=== PATIENT | male | born 1980 | race Caucasian/White ===

== ENCOUNTER 2017-12-22 12:12 | Emergency (ER) | payer SELFPAY ==
[2017-12-22] MEDS ORDERED: KETOROLAC 30 MG/ML INJ ONE (14:20)
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
== END 2017-12-22 15:08 | disposition home or self-care (01) ==
LOC: ER 12:12
DX: S83.8X2A Sprain of other specified parts of left knee, initial encounter (principal); S39.012A Strain of muscle, fascia and tendon of lower back, initial encounter; S29.012A Strain of muscle and tendon of back wall of thorax, initial encounter; V49.49XA Driver injured in collision with other motor vehicles in traffic accident, initial encounter
CPT/HCPCS: 96372; 99283

== ENCOUNTER 2018-05-23 12:27 | Emergency (ER) | payer SELFPAY ==
[2018-05-23] MEDS ORDERED: KETOROLAC 30 MG/ML INJ ONE (13:10)
[2018-05-23] MEDS ORDERED: ONDANSETRON 4 MG/2 ML VIAL ONE (13:10)
[2018-05-23] MEDS ORDERED: NA CHLORIDE 0.9% 1,000 ML ONE (13:11)
[2018-05-23 13:20] LABS: Absolute Lymphocytes (CBC) 2.5 K/uL (0.7-4.9); Absolute Monocytes 0.8 K/uL (0.1-1.3); Absolute Neutrophil 10.9 K/uL (1.8-8.0); Basophils % 0.5 % (0-1.3); Eosinophils % 0.7 % (0-4.4); Hematocrit 43.4 % (39.6-49.0); Lymphocytes % 17.6 % (15.3-44.8); MCH 28.4 pg (27.0-35.0); MPV 7.7 fL (7.6-11.3); Monocytes % 5.8 % (3.3-12.3); RBC Red Blood Cell Count 5.23 M/uL (4.33-5.43)
[2018-05-23 13:30] LABS: Urine Bacteria >50 /HPF (NONE SEEN); Urine Culture Reflex Order REFLEXED; Urine Mucus 2+ /HPF (NONE SEEN)
--- NOTE | 2018-05-23 13:33 | RAD REPORT ---
EXAM DESCRIPTION: CT - Stone Protocol - 05/23/2018 1:12 pm CLINICAL HISTORY: Flank pain. left flank pain COMPARISON: No comparisons TECHNIQUE: Axial images were obtained without oral or IV contrast. Lack of contrast limits solid org an and vascular assessment. The [id number] spans the entirety of the system partially obscuring uppermost abdomen and lung bases. Coronal reformatted images were obtained and reviewed. All CT scans are performed using dose optimization technique as appropriate and may include automated exposure control or mA/KV adjustment according to patient size. FINDINGS: The lower lung sadler are clear. Imaged portions of the liver and spleen show fatty liver.Spleen is normal. The pancreas and adrenal g lands are normal. No pathologic lymphadenopathy in the abdomen or pelvis. 5 mm stone (925 HU) is present at the left UVJ resulting in mild left hydronephrosis. Additional bila teral caliceal stones are present in both kidneys. No bowel obstruction, free air, free fluid or abscess. Normal appendix noted. No significant bony abnormality. IMPRESSION: 5 mm stone at the left UVJ results in mild left hydronephrosis.
[2018-05-23 13:37] LABS: Albumin 3.7 g/dL (3.4-5.0); Bilirubin Direct 0.1 mg/dL (0-0.2); Bilirubin Total 0.4 mg/dL (0.2-1.0); Potassium 3.6 mmol/L (3.5-5.1); Protein, Total 7.9 g/dL (6.4-8.2)
[2018-05-23] MEDS ORDERED: MAGNESIUM SULFATE 1 gm IVPB 1 GM/100 ML BAG IV ONE (13:43)
--- NOTE | 2018-05-23 14:21 | ER ---
Nurse's Notes [facility] Name: Clifton Macias Age: 38 yrs Sex: Male : 1980 Arrival Date: 05/23/2018 Time: 12:30 Bed 18 Private MD: None, None Diagnosis: Calculus of ureter-Left Presentation: 05/23 12:30 Presenting complaint: Patient states: Sunday i thought its a muscle pain, took tylenol hj and then abd pain getting worse (L flank area, radiating to the groin area); reports N/V; reports constipation; reports chills;. Transition of care: patient was not received from another setting of care. Onset of symptoms was May 23, 2018. Risk Assessment: Do you want to hurt yourself or someone else? Patient reports no desire to harm self or others. Initial Sepsis Screen: Does the patient meet any 2 criteria? No. Patient's initial sepsis screen is negative. Does the patient have a suspected source of infection? No. Patient's initial sepsis screen is negative. Care prior to arrival: None. 12:30 Method Of Arrival: Ambulatory 12:30 Acuity: TOSHIA 3 hj Triage Assessment: 12:33 General: Appears in no apparent distress. uncomfortable, Behavior is calm, cooperative, hj appropriate for age. Pain: Complains of pain in abdomen, L flank Pain currently is 7 out of 10 on a pain scale. Historical: - Allergies: 12:32 No Known Allergies; hj - Home Meds: 12:32 None [Active]; hj - PMHx: 12:32 None; hj - PSHx: 12:32 None; hj - Immunization history:: Adult Immunizations up to date. - Social history:: Smoking status: Patient/guardian denies using tobacco, Patient/guardian denies using alcohol. - Ebola Screening: : Patient negative for fever greater than or equal to 101.5 degrees Fahrenheit, and additional compatible Ebola Virus Disease symptoms Patient denies exposure to infectious person Patient denies travel to an Ebola-affected area in the 21 days before illness onset. Screenin:33 Abuse screen: Denies threats or abuse. Denies injuries from another. Nutritional hj screening: No deficits noted. Tuberculosis screening: No symptoms or risk factors identified. Fall Risk None identified. Assessment: 12:55 General: Appears uncomfortable, obese, Behavior is calm, cooperative. Pain: Complains aa5 of pain in left flank Pain radiates to left lower quadrant Pain currently is 10 out of 10 on a pain scale. Quality of pain is described as sharp, Pain began this morning. Pt states "I had this pain Sunday and it went away but came back today" Is continuous. Neuro: Level of Consciousness is awake, alert, obeys commands, Oriented to person, place, time, situation. Cardiovascular: Heart tones S1 S2 present Rhythm is regular. Respiratory: Airway is patent Respiratory effort is even, unlabored, Respiratory pattern is regular, symmetrical. GI: Abdomen is obese, Bowel sounds present X 4 quads. Abd is soft and non tender X 4 quads. Reports nausea, vomiting, Reports last BM was Sunday. Pt reports constipation. : Reports burning with urination, decreased urinary output since Sunday. EENT: No signs and/or symptoms were reported regarding the EENT system. Derm: Skin is pink, warm \\T\\ dry. Musculoskeletal: Range of motion: intact in all extremities. 13:35 Reassessment: Patient and/or family updated on plan of care and expected duration. Pain aa5 level reassessed. Patient is alert, oriented x 3, equal unlabored respirations, skin warm/dry/pink. Patient denies pain at this time. Patient states feeling better. 14:30 Reassessment: Pt resting in bed with eyes closed, respirations even and unlabored, skin aa5 is pink/warm/dry. 15:35 Reassessment: Patient is alert, oriented x 3, equal unlabored respirations, skin aa5 warm/dry/pink. Patient denies pain at this time. Patient states feeling better. Vital Signs: 12:33 BP 146 / 92; Pulse 94; Resp 18; Temp 96.8(TE); Pulse Ox 99% on R/A; Weight 144.24 kg; Height 5 ft. 6 in. (167.64 cm); Pain 7/10; 13:10 Temp 98.2(O); aa5 13:55 BP 124 / 63; Pulse 75; Resp 20 S; Pulse Ox 96% on R/A; aa5 14:30 BP 126 / 71; Pulse 80; Resp 18 S; Temp 98.0(O); Pulse Ox 97% on R/A; Pain 0/10; aa5 15:30 BP 123 / 67; Pulse 70; Resp 18 S; Temp 97.6(TE); Pulse Ox 96% on R/A; Pain 0/10; aa5 12:33 Body Mass Index 51.33 (144.24 kg, 167.64 cm) hj ED Course: 12:30 Patient arrived in ED. mr 12:30 None, None is Private Physician. mr 12:32 Triage completed. hj 12:33 Arm band placed on right wrist. hj 12:33 Patient has correct armband on for positive identification. Placed in gown. Bed in low hj position. Call light in reach. Side rails up X 1. 12:35 Jun Olivas PA is PHCP. cp 12:35 Iraj Quevedo MD is Attending Physician. cp 12:39 Anastacio Victoria, RN is Primary Nurse. jl7 12:42 Primary Nurse role handed off by Anastacio Victoria RN aa5 12:42 Ivette Gillette, RN is Primary Nurse. aa5 13:00 Initial lab(s) drawn, by wi, sent to lab. Inserted saline lock: 20 gauge in left aa5 antecubital area, using aseptic technique. Blood collected. 13:[address] 13:11 CT completed. Patient tolerated procedure well. Patient moved to CT via stretcher. Patient moved back from CT. 13:12 CT Stone Protocol In Process Unspecified. EDMS 13:21 Urine collected: clean catch specimen, clear. 5 13:22 Urine Microscopic Only Sent. 5 13:57 No provider procedures requiring assistance completed. aa5 14:20 Josh Arguelles MD is Referral Physician. cp 15:35 IV discontinued, intact, bleeding controlled, No redness/swelling at site. Pressure aa5 dressing applied. Administered Medications: 13:00 Drug: TORadol 30 mg Route: IVP; Site: left antecubital; aa5 13:35 Follow up: Response: No adverse reaction aa5 13:00 Drug: Zofran 4 mg Route: IVP; Site: left antecubital; aa5 13:35 Follow up: Response: No adverse reaction aa5 13:05 Drug: NS 0.9% 1000 ml Route: IV; Rate: 1 bolus; Site: left antecubital; aa5 14:00 Follow up: Response: No adverse reaction aa5 13:35 Drug: Magnesium Sulfate 1 grams Route: IVPB; Infused Over: 1 hrs; Site: left aa5 antecubital; 14:40 Follow up: Response: No adverse reaction aa5 13:51 Not Given (Physician Discretion): Magnesium Sulfate 1 grams IVPB once over 30 hrs aa5 14:49 Drug: Rocephin 2 grams Route: IV; Rate: bolus; Site: right antecubital; iw 14:49 Drug: Flomax 0.4 mg Route: PO; iw 15:35 Follow up: Response: No adverse reaction aa5 Outcome: 14:21 Discharge ordered by . tona 15:35 Discharged to home ambulatory. aa5 15:35 Condition: improved 15:35 Discharge instructions given to patient, Instructed on discharge instructions, follow up and referral plans. medication usage, Demonstrated understanding of instructions, follow-up care, medications, Prescriptions given X 4. 15:41 Patient left the ED. aa5 Signatures: Dispatcher [employer] EDME EddieMasha Susan sj Williams, Irene, RN RN iw Calderon, Audri, RN RN aa5 Robert Orellana RN RN hj Page, Corey, PA PA cp Martinez, Maria [facility] Anastacio Victoria RN RN jl7 Corrections: (The following items were deleted from the chart) 12:36 12:33 Pulse 94bpm; Resp 18bpm; Pulse Ox 99% RA; Temp 96.8F Temporal; 144.24 kg; Height hj 5 ft. 6 in.; BMI: 51.3; Pain 7/10; hj
--- NOTE | 2018-05-23 14:22 | EDPHYS ---
Physician Documentation [facility] Name: Clifton Macias Age: 38 yrs Sex: Male : 1980 Arrival Date: 05/23/2018 Time: 12:30 Bed 18 Private MD: None, None ED Physician Iraj Quevedo HPI: 05/23 13:05 This 38 yrs old Male presents to ER via Ambulatory with complaints of cp Abdominal Pain. 13:05 The patient presents with abdominal pain left lateral abdomen. cp 13:05 Onset: The symptoms/episode began/occurred 3 day(s) ago. cp 13:05 The symptoms radiate to left groin. Associated signs and symptoms: Pertinent positives: cp constipation, nausea, Pertinent negatives: anorexia, blood in stools, chest pain, diarrhea, testicular pain, vomiting. Historical: - Allergies: 12:32 No Known Allergies; hj - Home Meds: 12:32 None [Active]; hj - PMHx: 12:32 None; hj - PSHx: 12:32 None; hj - Immunization history:: Adult Immunizations up to date. - Social history:: Smoking status: Patient/guardian denies using tobacco, Patient/guardian denies using alcohol. - Ebola Screening: : Patient negative for fever greater than or equal to 101.5 degrees Fahrenheit, and additional compatible Ebola Virus Disease symptoms Patient denies exposure to infectious person Patient denies travel to an Ebola-affected area in the 21 days before illness onset. ROS: 13:10 Constitutional: Negative for body aches, chills, fever, poor PO intake. cp 13:10 Eyes: Negative for injury, pain, redness, and discharge. cp 13:10 ENT: Negative for drainage from ear(s), ear pain, sore throat, difficulty swallowing, difficulty handling secretions. 13:10 Cardiovascular: Negative for chest pain, edema, palpitations. 13:10 Respiratory: Negative for cough, shortness of breath, wheezing. 13:10 Abdomen/GI: Positive for abdominal pain, nausea, constipation, of the left lateral abdomen, Negative for diarrhea, anorexia, black/tarry stool, rectal bleeding. 13:10 Back: Negative for pain at rest, pain with movement, radiated pain. 13:10 Neuro: Negative for altered mental status, headache, weakness. 13:10 All other systems are negative. Exam: 13:15 Constitutional: The patient appears in no acute distress, alert, awake, cp non-diaphoretic, non-toxic, well developed, well nourished, obese, uncomfortable. 13:15 Head/Face: Normocephalic, atraumatic. cp 13:15 Eyes: Periorbital structures: appear normal, Conjunctiva: normal, no exudate, no injection, Sclera: no appreciated abnormality, Lids and lashes: appear normal, bilaterally. 13:15 ENT: External ear(s): are unremarkable, Nose: is normal, Mouth: Lips: moist, Oral mucosa: pink and intact, moist, Posterior pharynx: is normal, airway is patent, no erythema, no exudate. 13:15 Neck: ROM/movement: is normal, is supple, without pain, no range of motions limitations, no nuchal rigidity. 13:15 Chest/axilla: Inspection: normal, Palpation: is normal, no crepitus, no tenderness. 13:15 Cardiovascular: Rate: normal, Rhythm: regular. 13:15 Respiratory: the patient does not display signs of respiratory distress, Respirations: normal, no use of accessory muscles, no retractions, no splinting, no tachypnea, labored breathing, is not present. 13:15 Abdomen/GI: Inspection: obese Bowel sounds: active, all quadrants, Palpation: soft, in all quadrants, moderate abdominal tenderness, in the left upper quadrant and left lower quadrant, rebound tenderness, is not appreciated, voluntary guarding, is not appreciated, involuntary guarding, is not appreciated. 13:15 Back: CVA tenderness, is absent. 13:15 Skin: cellulitis, is not appreciated, no rash present. 13:15 Neuro: Orientation: to person, place \T\ time. Mentation: is normal, Cerebellar function: is grossly normal, Motor: moves all fours, strength is normal, Sensation: is normal. Vital Signs: 12:33 BP 146 / 92; Pulse 94; Resp 18; Temp 96.8(TE); Pulse Ox 99% on R/A; Weight 144.24 kg; hj Height 5 ft. 6 in. (167.64 cm); Pain 7/10; 13:10 Temp 98.2(O); aa5 13:55 BP 124 / 63; Pulse 75; Resp 20 S; Pulse Ox 96% on R/A; aa5 14:30 BP 126 / 71; Pulse 80; Resp 18 S; Temp 98.0(O); Pulse Ox 97% on R/A; Pain 0/10; aa5 15:30 BP 123 / 67; Pulse 70; Resp 18 S; Temp 97.6(TE); Pulse Ox 96% on R/A; Pain 0/10; aa5 12:33 Body Mass Index 51.33 (144.24 kg, 167.64 cm) hj MDM: 12:35 Patient medically screened. cp 13:00 Differential diagnosis: diverticulitis, gastritis, non-specific abd pain, pancreatitis, cp Ureterolithiasis, urinary tract infection. 14:20 Data reviewed: vital signs, nurses notes, lab test result(s), radiologic studies, CT cp scan. 14:20 Counseling: I had a detailed discussion with the patient and/or guardian regarding: the cp historical points, exam findings, and any diagnostic results supporting the discharge/admit diagnosis, lab results, radiology results, the need for outpatient follow up, a urologist, to return to the emergency department if symptoms worsen or persist or if there are any questions or concerns that arise at home. Response to treatment: the patient's symptoms have markedly improved after treatment, VSS. Pain markedly improved. Will discharge to home for continued monitoring. 05/23 12:59 Order name: Basic Metabolic Panel; Complete Time: 13:42 12 13:42 Interpretation: Normal except: GLUC 114; GFR 68. 05/23 12:59 Order name: CBC with Diff; Complete Time: 13:42 12 13:42 Interpretation: Normal except: WBC 14.5; [place]% 75.4; NEUT A 10.9. 05/23 12:59 Order name: Creatinine for Radiology; Complete Time: 13:42 05/23 12:59 Order name: Hepatic Function; Complete Time: 13:42 12/ 13:42 Interpretation: Normal except: GLOB 4.2; A/G 0.9. 12 12:59 Order name: Lipase; Complete Time: 13:42 12 12:59 Order name: Urine Microscopic Only; Complete Time: 13:42 12 13:42 Interpretation: Normal except: URBC 10-20; UBACT >50. 05/23 12:59 Order name: CT Stone Protocol; Complete Time: 13:42 cp 05/23 13:44 Interpretation: Report reviewed. 05/23 13:33 Order name: Urine Culture EDCA 05/23 14:01 Order name: Urine Dipstick--Ancillary (enter results) bd 05/23 12:59 Order name: IV Saline Lock; Complete Time: 13:12 cp 05/23 12:59 Order name: Labs collected and sent; Complete Time: 13:12 05/23 12:59 Order name: Urine Dipstick-Ancillary (obtain specimen); Complete Time: 13:20 05/23 14:19 Order name: PO challenge; Complete Time: 14:48 cp Administered Medications: 13:00 Drug: TORadol 30 mg Route: IVP; Site: left antecubital; aa5 13:35 Follow up: Response: No adverse reaction aa5 13:00 Drug: Zofran 4 mg Route: IVP; Site: left antecubital; aa5 13:35 Follow up: Response: No adverse reaction aa5 13:05 Drug: NS 0.9% 1000 ml Route: IV; Rate: 1 bolus; Site: left antecubital; aa5 14:00 Follow up: Response: No adverse reaction aa5 13:35 Drug: Magnesium Sulfate 1 grams Route: IVPB; Infused Over: 1 hrs; Site: left aa5 antecubital; 14:40 Follow up: Response: No adverse reaction aa5 13:51 Not Given (Physician Discretion): Magnesium Sulfate 1 grams IVPB once over 30 hrs aa5 14:49 Drug: Rocephin 2 grams Route: IV; Rate: bolus; Site: right antecubital; iw 14:49 Drug: Flomax 0.4 mg Route: PO; iw 15:35 Follow up: Response: No adverse reaction aa5 Disposition: 05/23/18 14:21 Discharged to Home. Impression: Calculus of ureter - Left. - Condition is Stable. - Discharge Instructions: Kidney Stones, Renal Colic. - Prescriptions for Tylenol- Codeine #3 300-30 mg Oral Tablet - take 2 tablets by ORAL route every 6 hours As needed no driving while taking medication; 20 tablet. Zofran 4 mg Oral Tablet - take 1 tablet by ORAL route every 12 hours As needed; 20 tablet. Flomax 0.4 mg Oral Capsule, Sust. Release 24 hr - take 1 capsule by ORAL route once daily As needed 1/2 hour following the same meal each day; 5 capsule. Cipro 500 mg Oral Tablet - take 1 tablet by ORAL route every 12 hours for 7 days; 14 tablet. - Medication Reconciliation Form, Thank You Letter, Antibiotic Education, Prescription Opioid Use form. - Follow up: Josh Arguelles MD; When: 2 - 3 days; Reason: Recheck today's complaints. - Problem is new. - Symptoms have improved. Signatures: Dispatcher [employer] EDBailey Garrido RN RN iw Ivette Gillette RN RN aa5 Robert Orellana RN RN hj Jun Olivas PA PA cp Corrections: (The following items were deleted from the chart) 15:41 14:21 05/23/2018 14:21 Discharged to Home. Impression: Calculus of ureter - Left. aa5 Condition is Stable. Forms are Medication Reconciliation Form, Thank You Letter, Antibiotic Education, Prescription Opioid Use. Follow up: Josh Arguelles; When: 2 - 3 days; Reason: Recheck today's complaints. Problem is new. Symptoms have improved. cp
[2018-05-23] MEDS ORDERED: TAMSULOSIN 0.4 MG SR CAP ONE (14:41)
[2018-05-23] MEDS ORDERED: CEFTRIAXONE/SWI 1gm 2 GM/20 ML SYR ONE (14:41)
[2018-05-23 16:20] LABS: Urine Blood 2+ (NEG); Urine Glucose TRACE (NEG); Urine Protein 1+ (NEG); Urine Specific Gravity 1.025 (1.005-1.030); Urine pH 5.5 (5.0-7.0)
== END 2018-05-23 15:41 | disposition home or self-care (01) ==
LOC: ER 12:27
DX: N20.1 Calculus of ureter (principal)
CPT/HCPCS: 36415; 74176; 76377; 80048; 80076; 81003; 81015; 83690; 85025; 87086; 87088; 99284; J0696; J2405; J3475; J7030

== ENCOUNTER 2018-11-15 20:09 | Emergency (ER) | payer SELFPAY ==
[2018-11-15 20:37] LABS: Absolute Lymphocytes (CBC) 1.6 K/uL (0.7-4.9); Absolute Monocytes 0.5 K/uL (0.1-1.3); Basophils % 0.9 % (0-1.3); Eosinophils % 0.6 % (0-4.4); Hematocrit 45.1 % (39.6-49.0); MPV 7.8 fL (7.6-11.3); Monocytes % 4.5 % (3.3-12.3); RBC Red Blood Cell Count 5.43 M/uL (4.33-5.43)
[2018-11-15] MEDS ORDERED: ONDANSETRON 4 MG/2 ML VIAL ONE (20:48)
[2018-11-15] MEDS ORDERED: MORPHINE 4 MG/ML SYR ONE (20:48)
[2018-11-15] MEDS ORDERED: NA CHLORIDE 0.9% 1,000 ML ONE (20:48)
--- NOTE | 2018-11-15 20:54 | RAD REPORT ---
EXAM DESCRIPTION: CT - Stone Protocol - 11/15/2018 8:33 pm CLINICAL HISTORY: Abdominal pain. Left flank pain COMPARISON: May 2018 TECHNIQUE: Computed axial tomography of the abdomen pelvis was obtained without oral or IV contrast. Lack of IV and oral contrast limits evaluation of solid organs, bowel, and vessels. Coronal reformat moises images were obtained and reviewed. All CT scans are performed using dose optimization technique as appropriate and may include automated exposure control or mA/KV adjustment according to patient size. FINDINGS: Small bilateral renal calculi. Mild left hydronephrosis. 5 millimeter calculus is present within the the bladder. Hounsfield unit 1000. Left ureter is mildly dilated. Fatty liver. Liver is enlarged The liver, spleen, pancreas and adrenals appear grossly normal There is no evidence of diverticulitis. The appendix appears normal Small umbilical hernia IMPRESSION: A 5 millimeter calculus appears to lie within the lumen of the bladder near the left ure teral vesicle junction. It likely has recently passed. Mild left hydronephrosis is present. Hepatomegaly with fatty infiltration
[2018-11-15 20:55] LABS: Albumin 3.9 g/dL (3.4-5.0); Bilirubin Direct 0.1 mg/dL (0-0.2); Bilirubin Total 0.4 mg/dL (0.2-1.0); Protein, Total 8.2 g/dL (6.4-8.2)
--- NOTE | 2018-11-15 21:12 | ER ---
Nurse's Notes [facility] Name: Clifton Macias Age: 38 yrs Sex: Male : 1980 Arrival Date: 11/15/2018 Time: 20:10 Bed 30 Private MD: Diagnosis: Calculus in bladder Presentation: 11/15 20:19 Presenting complaint: Patient states: "I think I have a kidney stone on my left side.". jd3 Transition of care: patient was not received from another setting of care. Onset of symptoms was November 15, 2018. Risk Assessment: Do you want to hurt yourself or someone else? Patient reports no desire to harm self or others. Initial Sepsis Screen: Does the patient meet any 2 criteria? No. Patient's initial sepsis screen is negative. Does the patient have a suspected source of infection? No. Patient's initial sepsis screen is negative. Care prior to arrival: None. 20:19 Method Of Arrival: Ambulatory jd3 20:19 Acuity: TOSHIA 3 jd3 Historical: - Allergies: 20:20 No Known Allergies; jd3 - Home Meds: 20:20 None [Active]; jd3 - PMHx: 20:20 Kidney stones; jd3 - PSHx: 20:20 None; jd3 - Immunization history:: Adult Immunizations up to date. - Social history:: Smoking status: Patient/guardian denies using tobacco. - Ebola Screening: : Patient negative for fever greater than or equal to 101.5 degrees Fahrenheit, and additional compatible Ebola Virus Disease symptoms. Screenin:55 Abuse screen: Denies threats or abuse. Denies injuries from another. Nutritional rv screening: No deficits noted. Tuberculosis screening: No symptoms or risk factors identified. Fall Risk None identified. Assessment: 20:54 General: Appears in no apparent distress. uncomfortable, Behavior is calm, cooperative. rv Pain: Complains of pain in back. Neuro: Level of Consciousness is awake, alert, obeys commands, Oriented to person, place, time, situation. Cardiovascular: Patient's skin is warm and dry. Respiratory: Airway is patent. GI: No signs and/or symptoms were reported involving the gastrointestinal system. : No signs and/or symptoms were reported regarding the genitourinary system. EENT: No signs and/or symptoms were reported regarding the EENT system. Derm: Skin is intact. Musculoskeletal: No signs and/or symptoms reported regarding the musculoskeletal system. 21:03 Reassessment: Patient appears in no apparent distress at this time. Patient and/or rv family updated on plan of care and expected duration. Pain level reassessed. Patient is alert, oriented x 3, equal unlabored respirations, skin warm/dry/pink. EXPLAINED TO PATIENT THAT HE NEEDS A RIDE HOME, BEFORE GIVING THE MEDICINES, PATIENT UNDERSTOOD AND AGREED VERBALLY. Vital Signs: 20:20 BP 150 / 108; Pulse 91; Resp 20 S; Temp 98.5(TE); Pulse Ox 97% on R/A; Weight 158.76 kg jd3 (R); Height 5 ft. 6 in. (167.64 cm) (R); Pain 7/10; 21:00 BP 125 / 82; Pulse 88; Resp 16; Pulse Ox 97% ; rv 20:20 Body Mass Index 56.49 (158.76 kg, 167.64 cm) jd3 ED Course: 20:10 Patient arrived in ED. ag3 20:13 Teodoro Monteiro PA is PHCP. jmm 20:13 Esvin Baum MD is Attending Physician. m 20:20 Triage completed. jd3 20:21 Arm band placed on. jd3 20:23 Donnell Ba, RN is Primary Nurse. rv 20:30 Inserted saline lock: 20 gauge in right antecubital area, using aseptic technique. rv Blood collected. 20:[address] nj 20:33 CT completed. Patient tolerated procedure well. Note: pt refused wheelchair. nj 20:35 CT Stone Protocol In Process Unspecified. EDMS 20:55 Patient has correct armband on for positive identification. Bed in low position. Call rv light in reach. Side rails up X 1. Pulse ox on. NIBP on. 21:35 No provider procedures requiring assistance completed. IV discontinued, intact, rv bleeding controlled, No redness/swelling at site. Pressure dressing applied. Administered Medications: 20:40 Drug: NS 0.9% 1000 ml Route: IV; Rate: 1 bolus; Site: right antecubital; rv 21:37 Follow up: IV Status: Completed infusion rv 20:44 Drug: Zofran 4 mg Route: IVP; Site: right antecubital; rv 21:37 Follow up: Response: Marked relief of symptoms rv 20:46 Drug: morphine 4 mg Route: IVP; Site: right antecubital; rv 21:37 Follow up: Response: Marked relief of symptoms; Pain is decreased rv Outcome: 21:11 Discharge ordered by . devan 21:36 Discharged to home ambulatory. rv 21:36 Condition: improved 21:36 Discharge instructions given to patient, family, Instructed on discharge instructions, follow up and referral plans. medication usage, Demonstrated understanding of instructions, follow-up care, medications, Prescriptions given X 1. 21:36 Patient left the ED. rv Signatures: Dispatcher [employer] EDMS Teodoro Monteiro PA PA jmm Jordan, Nathan nj Davies, Jonathon, RN RN jDonnell Lemons RN RN Prema Varela3
--- NOTE | 2018-11-15 21:12 | EDPHYS ---
Physician Documentation [facility] Name: Clifton Macias Age: 38 yrs Sex: Male : 1980 Arrival Date: 11/15/2018 Time: 20:10 Bed 30 Private MD: ED Physician Esvin Baum HPI: 11/15 20:24 This 38 yrs old Male presents to ER via Ambulatory with complaints of Back jmm Pain. 20:24 The patient presents with pain that is acute, with no known mechanism of injury. Onset: jmm The symptoms/episode began/occurred gradually, today. The pain radiates to the abdomen. Associated signs and symptoms: Pertinent negatives: fever, vomiting. This is a 38 year old male with a history of kidney stones that presents to the ED with complaints of left flank pain beginning earlier today at around noon. Patient states symptoms are similar to previous kidney stones No relief with prescribed pain medication. . Historical: - Allergies: 20:20 No Known Allergies; jd3 - Home Meds: 20:20 None [Active]; jd3 - PMHx: 20:20 Kidney stones; jd3 - PSHx: 20:20 None; jd3 - Immunization history:: Adult Immunizations up to date. - Social history:: Smoking status: Patient/guardian denies using tobacco. - Ebola Screening: : Patient negative for fever greater than or equal to 101.5 degrees Fahrenheit, and additional compatible Ebola Virus Disease symptoms. ROS: 20:24 Constitutional: Negative for fever, chills, and weight loss, Cardiovascular: Negative jmm for chest pain, palpitations, and edema, Respiratory: Negative for shortness of breath, cough, wheezing, and pleuritic chest pain. 20:24 MS/Extremity: Negative for injury and deformity, Skin: Negative for injury, rash, and discoloration, Neuro: Negative for headache, weakness, numbness, tingling, and seizure. 20:24 Abdomen/GI: Positive for abdominal pain. 20:24 Back: Positive for flank pain, on the left. 20:24 All other systems are negative. Exam: 20:24 Constitutional: This is a well developed, well nourished patient who is awake, alert, jmm and in no acute distress. Head/Face: atraumatic. Eyes: EOMI, no conjunctival erythema appreciated ENT: Moist Mucus Membranes Neck: Trachea midline, Supple Chest/axilla: Normal chest wall appearance and motion. Cardiovascular: Regular rate and rhythm. No edema appreciated Respiratory: Normal respirations, no respiratory distress appreciated 20:24 Abdomen/GI: Inspection: obese Bowel sounds: normal, Palpation: abdomen is soft and non-tender. 20:24 Back: CVA tenderness, that is mild, is noted on the left. 20:24 Neuro: Orientation: is normal, Mentation: is normal, Memory: is normal. 20:24 Psych: Behavior/mood is pleasant, cooperative. Vital Signs: 20:20 BP 150 / 108; Pulse 91; Resp 20 S; Temp 98.5(TE); Pulse Ox 97% on R/A; Weight 158.76 kg jd3 (R); Height 5 ft. 6 in. (167.64 cm) (R); Pain 7/10; 21:00 BP 125 / 82; Pulse 88; Resp 16; Pulse Ox 97% ; rv 20:20 Body Mass Index 56.49 (158.76 kg, 167.64 cm) jd3 MDM: 20:21 Patient medically screened. [facility] 21:10 Data reviewed: vital signs, nurses notes. Counseling: I had a detailed discussion with devan the patient and/or guardian regarding: the historical points, exam findings, and any diagnostic results supporting the discharge/admit diagnosis, lab results, radiology results, the need for outpatient follow up, to return to the emergency department if symptoms worsen or persist or if there are any questions or concerns that arise at home. ED course: Symptoms resolved in the ED. Patient is advised to follow up with pcp and otherwise given strict return precautions. Patient understood and agrees with the plan of care. . 11/15 20:23 Order name: Basic Metabolic Panel; Complete Time: 20:56 [facility] 11/15 20:23 Order name: CBC with Diff; Complete Time: 20:56 [facility] 11/15 20:23 Order name: Creatinine for Radiology; Complete Time: 20:56 [facility] 11/15 20:23 Order name: Hepatic Function; Complete Time: 20:56 [facility] 11/15 20:23 Order name: Lipase; Complete Time: 20:56 [facility] 11/15 20:23 Order name: CT Stone Protocol; Complete Time: 20:56 [facility] 11/15 20:23 Order name: IV Saline Lock; Complete Time: 20:44 [facility] 11/15 20:23 Order name: Labs collected and sent; Complete Time: 20:44 [facility] Administered Medications: 20:40 Drug: NS 0.9% 1000 ml Route: IV; Rate: 1 bolus; Site: right antecubital; rv 21:37 Follow up: IV Status: Completed infusion rv 20:44 Drug: Zofran 4 mg Route: IVP; Site: right antecubital; rv 21:37 Follow up: Response: Marked relief of symptoms rv 20:46 Drug: morphine 4 mg Route: IVP; Site: right antecubital; rv 21:37 Follow up: Response: Marked relief of symptoms; Pain is decreased rv Disposition: 11/15/18 21:11 Discharged to Home. Impression: Calculus in bladder. - Condition is Stable. - Discharge Instructions: Kidney Stones. - Medication Reconciliation Form, Thank You Letter, Antibiotic Education, Prescription Opioid Use form. - Follow up: Private Physician; When: 2 - 3 days; Reason: Recheck today's complaints, Continuance of care, Re-evaluation by your physician. Addendum: 11/19/2018 16:35 Co-signature as Attending Physician, Esvin Baum MD I agree with the assessment and t w4 plan of care. Signatures: Dispatcher [employer] EDTeodoro Lucero PA PA jmm Davies, Jonathon, RN RN jd3 Esvin Baum MD MD tw4 Donnell Ba RN RN rv Corrections: (The following items were deleted from the chart) 11/15 21:36 21:11 11/15/2018 21:11 Discharged to Home. Impression: Calculus in bladder. Condition rv is Stable. Forms are Medication Reconciliation Form, Thank You Letter, Antibiotic Education, Prescription Opioid Use. Follow up: Private Physician; When: 2 - 3 days; Reason: Recheck today's complaints, Continuance of care, Re-evaluation by your physician. [facility]
== END 2018-11-15 21:36 | disposition home or self-care (01) ==
LOC: ER 20:09
DX: N21.0 Calculus in bladder (principal); Z87.442 Personal history of urinary calculi
CPT/HCPCS: 36415; 74176; 76377; 80048; 80076; 83690; 85025; 96361; 96374; 96375; 99284; J2405; J7030

== ENCOUNTER 2024-02-12 09:20 | Emergency (ER) | payer BC, SELFPAY ==
--- NOTE | 2024-02-12 11:03 | RAD REPORT ---
EXAM DESCRIPTION: CT - [id number] - 02/12/2024 10:06 am CLINICAL HISTORY: fall. Head trauma COMPARISON: No comparisons TECHNIQUE: Axial thin cut noncontrast CT images of the head were obtained. Axial thin cut noncontrast CT images of the cervical spine were obtained. Multiplanar reformatted images were generated and reviewed. All CT scans are performed using dose optimization technique as appropriate and may include automated exposure control or mA/KV adjustment according to patient size. FINDINGS: CT HEAD WITHOUT CONTRAST: No acute hemorrhage, hydrocephalus or extra-axial collection is identified.No areas of brain edema or midline shift. The paranasal sinuses and mastoids are clear.The calvarium is intact. CT CERVICAL SPINE WITHOUT CONTRAST: No fracture or subluxation. Straightening of normal cervical lordosis, which could be positional or s econdary to muscle spasm. Mild degenerative changes with endplate spurring. No prevertebral soft tiss ues swelling is identified. IMPRESSION: No acute traumatic intracranial or cervical spine findings. Straightening of normal cervical lordosis which may be positional or secondary to muscle spasm.
--- NOTE | 2024-02-12 11:30 | RAD REPORT ---
EXAM DESCRIPTION: RAD - Elbow Right 3 View - 02/12/2024 10:28 am CLINICAL HISTORY: PAIN COMPARISON: No comparisons TECHNIQUE: Right elbow, 3 views. FINDINGS: No fracture is identified. No elevated posterior fat pad to suggest an effusion. There is no dislocation or periosteal reaction noted. No foreign body or other soft tissue abnormalit y. IMPRESSION: Negative right elbow examination.
--- NOTE | 2024-02-12 11:31 | RAD REPORT ---
EXAM DESCRIPTION: RAD - Knee Right 3 View - 02/12/2024 10:28 am CLINICAL HISTORY: PAIN COMPARISON: No comparisons TECHNIQUE: Right knee, 3 views. FINDINGS: No fracture, dislocation or periosteal reaction.No joint effusion seen. No joint space hipolito rowing. Mild marginal spurring along the patellar articular surface. No soft tissue abnormality. Clinical concerns for internal derangement or occult bony injury could be further assessed with MR im aging. IMPRESSION: No acute osseous abnormality. Mild patellofemoral osteoarthritic changes.
--- NOTE | 2024-02-12 11:50 | ER ---
Nurse's Notes [facility] Name: Clifton Macias Age: 43 yrs Sex: Male : 1980 Arrival Date: 02/12/2024 Time: 09:20 Bed 19 Private MD: Diagnosis: Unspecified injury of head, initial encounter;Contusion of right elbow;Contusion of right knee Presentation: 02/11 09:46 Chief complaint: Patient states: slipped and fell at [facility] ([place], [place]) this morning, feet went out iw from under him, fell back and hit head, pain to top of head and down right jaw and pain to right elbow and right knee , remembers hitting the floor, may have blacked out. 09:46 Acuity: TOSHIA 3 iw 12:18 Coronavirus screen: At this time, the client does not indicate any symptoms associated iw with coronavirus-19. Ebola Screen: No symptoms or risks identified at this time. Initial Sepsis Screen: Does the patient meet any 2 criteria? No. Patient's initial sepsis screen is negative. Does the patient have a suspected source of infection? No. Patient's initial sepsis screen is negative. Risk Assessment: Do you want to hurt yourself or someone else? Patient reports no desire to harm self or others. 12:18 Method Of Arrival: Ambulatory iw Historical: - Allergies: 09:48 No Known Allergies; iw - PMHx: 09:48 Kidney stones; iw - Immunization history:: Client reports receiving the 2nd dose of the Covid vaccine. - Infectious Disease History:: Denies. - Family history:: not pertinent. - Hospitalizations: : No recent hospitalization is reported. - Social history:: Smoking status: unknown. Screenin:21 [facility] ED Fall Risk Assessment (Adult) History of falling in the last 3 months, tm6 including since admission No falls in past 3 months (0 pts) Confusion or Disorientation No (0 pts) Intoxicated or Sedated No (0 pts) Impaired Gait No (0 pts) Mobility Assist Device Used No (0 pt) Altered Elimination No (0 pt) Score/Fall Risk Level 0 - 2 = Low Risk Oriented to surroundings, Maintained a safe environment, Educated pt \T\ family on fall prevention, incl call for assistance when getting out of bed. Abuse screen: Denies threats or abuse. Denies injuries from another. Nutritional screening: No deficits noted. Tuberculosis screening: No symptoms or risk factors identified. Assessment: 11:21 General: Appears in no apparent distress. Behavior is calm, cooperative. Pain: tm6 Complains of pain in face and right knee Pain currently is 5 out of 10 on a pain scale. Quality of pain is described as aching, Pain began 1 hour ago. Neuro: Level of Consciousness is awake, alert, obeys commands, Oriented to person, place, time, situation. Neuro: Reports headache. Cardiovascular: Patient's skin is warm and dry. Respiratory: Airway is patent Respiratory effort is even, unlabored, Respiratory pattern is regular, symmetrical. GI: No signs and/or symptoms were reported involving the gastrointestinal system. Abdomen is round. : No signs and/or symptoms were reported regarding the genitourinary system. EENT: No signs and/or symptoms were reported regarding the EENT system. Derm: No signs and/or symptoms reported regarding the dermatologic system. Musculoskeletal: Reports pain in face and right knee Pain is 5 out of 10 on a pain scale. Vital Signs: 09:48 BP 122 / 90; Pulse 92; Resp 18; Temp 98.2; Pulse Ox 99% on R/A; iw 11:21 BP 141 / 89; Pulse 76; Pulse Ox 98% on R/A; Pain 5/10; tm6 11:21 Pain Scale: Adult tm6 ED Course: 09:23 Patient arrived in ED. ra3 09:23 Jeyson Limon MD is Attending Physician. rn 09:47 Triage completed. iw 10:08 CT Head C Spine In Process Unspecified. EDMS 10:30 XRAY Elbow RIGHT 3 view In Process Unspecified. EDMS 10:30 XRAY Knee RIGHT 3 view In Process Unspecified. EDMS 11:20 Arm band placed on. iw 11:21 Patient has correct armband on for positive identification. Bed in low position. Call tm6 light in reach. Side rails up X 1. Provided Education on: use of call manuel. Client placed on continuous cardiac and pulse oximetry monitoring. NIBP monitoring applied. Pulse ox on. NIBP on. Door closed. Noise minimized. 12:16 Bailey El, RN is Primary Nurse. iw 12:18 No provider procedures requiring assistance completed. Patient did not have IV access iw during this emergency room visit. Administered Medications: No medications were administered Medication: 11:21 VIS not applicable for this client. tm6 Outcome: 11:49 Discharge ordered by . rn 12:18 Discharged to home ambulatory, iw 12:18 Condition: good 12:18 Discharge instructions given to patient, Instructed on discharge instructions, follow up and referral plans. Demonstrated understanding of instructions, follow-up care, 12:19 Patient left the ED. iw Signatures: Dispatcher [employer] EDBailey Garrido RN RN iw Jeyson Limon MD MD rn Masterson, Tawney, RN RN tm6 Elda Kaufman ra3 Corrections: (The following items were deleted from the chart) 11:10 09:48 BP 122 / 90; Pulse 92bpm; Resp 18bpm; Pulse Ox 99% RA; iw iw
--- NOTE | 2024-02-12 11:50 | EDPHYS ---
Physician Documentation [facility] Name: Clifton Macias Age: 43 yrs Sex: Male : 1980 Arrival Date: 02/12/2024 Time: 09:20 Bed 19 Private MD: ED Physician Jeyson Limon HPI: 02/11 10:09 This 43 yrs old Male presents to ER via Unassigned with complaints of Fall Injury, Head rn Injury-Adult, Dizziness. 10:09 Details of fall: The patient fell from an upright position. Onset: The symptoms/episode rn began/occurred just prior to arrival. Associated injuries: The patient sustained injury to the head. Severity of symptoms: At their worst the symptoms were mild, in the emergency department the symptoms are unchanged. Patient reports walking at a restaurant, slipped on wet surface, fell and struck the back of his head. Also reports minor injury to the right elbow and right knee but ambulatory and does not feel like anything is broken. Reports headache. No vomiting. No blood thinners. Remembers all events.. Historical: - Allergies: 09:48 No Known Allergies; iw - PMHx: 09:48 Kidney stones; iw - Immunization history:: Client reports receiving the 2nd dose of the Covid vaccine. - Infectious Disease History:: Denies. - Family history:: not pertinent. - Hospitalizations: : No recent hospitalization is reported. - Social history:: Smoking status: unknown. ROS: 10:09 Constitutional: Negative for fever, chills, and weight loss, Neck: Negative for injury, rn pain, and swelling, Cardiovascular: Negative for chest pain, palpitations, and edema, Respiratory: Negative for shortness of breath, cough, wheezing, and pleuritic chest pain, Abdomen/GI: Negative for abdominal pain, nausea, vomiting, diarrhea, and constipation, Back: Negative for injury and pain, MS/Extremity: Positive for right elbow and right knee pain Skin: Negative for injury, rash, and discoloration, Neuro: Positive for headache Exam: 10:09 Constitutional: This is a well developed, well nourished patient who is awake, alert, rn and in no acute distress. Head/Face: Normocephalic, atraumatic. Neck: No midline cervical tenderness Chest/axilla: No rib tenderness or crepitus Cardiovascular: Regular rate and rhythm. No pulse deficits. Respiratory: Speaking full sentences, unlabored. No retractions Back: No midline spinal tenderness MS/ Extremity: Mild painful range of motion right elbow and right knee without gross deformity. No open wounds. No swelling. No ecchymosis. Neuro: Awake and alert, GCS 15 Vital Signs: 09:48 BP 122 / 90; Pulse 92; Resp 18; Temp 98.2; Pulse Ox 99% on R/A; iw 11:21 BP 141 / 89; Pulse 76; Pulse Ox 98% on R/A; Pain 5/10; tm6 11:21 Pain Scale: Adult tm6 MDM: 09:24 Patient medically screened. rn 11:48 Differential diagnosis: closed head injury, contusion, fracture. Data reviewed: vital rn signs, nurses notes, lab test result(s), radiologic studies, CT scan, plain films, and as a result, I will discharge patient. Counseling: I had a detailed discussion with the patient and/or guardian regarding the historical points, exam findings, and any diagnostic results supporting the discharge/admit diagnosis, lab results, radiology results, the need for outpatient follow up, to return to the emergency department if symptoms worsen or persist or if there are any questions or concerns that arise at home. Special discussion: Based on the patient's history, exam and DX evaluation, there is no indication for emergent intervention or inpatient TX. It is understood by the patient/guardian that if the SXs persist or worsen they need to return immediately for re-evaluation. I discussed with the patient/guardian in detail that at this point there is no indication for admission to the hospital. It is understood, however, that if the symptoms persist or worsen the patient needs to return immediately for re-evaluation. 02/11 09:51 Order name: CT Head C Spine; Complete Time: 11:34 iw 02/11 09:51 Order name: XRAY Elbow RIGHT 3 view; Complete Time: 11:34 iw 02/11 09:51 Order name: XRAY Knee RIGHT 3 view; Complete Time: 11:34 iw Administered Medications: No medications were administered Disposition Summary: 02/12/24 11:49 Discharge Ordered Notes: Location: Home rn Problem: new rn Symptoms: have improved rn Condition: Stable rn Diagnosis - Unspecified injury of head, initial encounter rn - Contusion of right elbow rn - Contusion of right knee rn Followup: rn - With: Private Physician - When: As needed - Reason: Recheck today's complaints, Re-evaluation by your physician Discharge Instructions: - Discharge Summary Sheet rn - Contusion rn - Head Injury, Adult rn Forms: - Work release form iw - Medication Reconciliation Form rn - Antibiotic outpatient surgery rn - Prescription Opioid Use rn - Patient Portal Instructions rn - Leadership Thank You Letter rn Signatures: Dispatcher [employer] Bailey Wong RN RN Jeyson Limon MD MD rn Masterson, Tawney, RN RN tm6
[2024-02-12 12:23] VITALS: TEMP 98.2
[2024-02-12 12:25] VITALS: BP 141/89; O2SAT 98
== END 2024-02-12 12:19 | disposition home or self-care (01) ==
LOC: ER 09:20
DX: S09.90XA Unspecified injury of head, initial encounter (principal); S50.01XA Contusion of right elbow, initial encounter; S80.01XA Contusion of right knee, initial encounter; W01.0XXA Fall on same level from slipping, tripping and stumbling without subsequent striking against object, initial encounter; Y92.511 Restaurant or cafe as the place of occurrence of the external cause
CPT/HCPCS: 70450; 72125; 99283